=== PATIENT | male | born 1980 | race Caucasian/White ===

== ENCOUNTER 2017-11-04 20:49 | Emergency (ER) | payer BC ==
[2017-11-04 21:05] VITALS: BP 187/107
[2017-11-04] MEDS ORDERED: Ondansetron 4 MG/2 ML SDV IVPUSH ONE (21:32)
[2017-11-04] MEDS ORDERED: HYDROmorphone 1 MG/ML Syringe IVPUSH ONE (21:32)
--- NOTE | 2017-11-04 21:40 | EDM.PDOC ---
ED HPI GENERAL MEDICAL PROBLEM - General Chief Complaint: Genitourinary Problem Stated Complaint: BLEEDING Time Seen by Provider: 11/04/17 21:08 Source of Information: Reports: Patient History Limitations: Reports: No Limitations - History of Present Illness INITIAL COMMENTS - FREE TEXT/NARRATIVE: This is a 37-year-old male. He had a vasectomy yesterday by a local family physician. He took it easy yesterday after the procedure. Apparently today he went to a class and noted that his scrotum began to swell. He states he has not been doing anything too rambunctious and has not hit his testicle area though he did lift his kids up that weighed 25-30 pounds. Since the swelling started he has gotten markedly worse with marked swelling of the scrotum that's very tense and the purple discoloration is up into the pre-pubic area and also the perineal area as well as the scrotum and into the base of the shaft of the penis. He has been able to urinate despite the swelling. He denies any fever or chills he denies any other acute symptoms. Pelvic Pain Score (Numeric/FACES): 8 - Related Data Allergies Allergy/AdvReac Type Severity Reaction Status Date / Time No Known Allergies Allergy Verified 11/04/17 20:56 Home Meds: Home Meds Acetaminophen/Codeine [Tylenol with Codeine No.3 300MG/30MG] 1 tab PO ASDIRECTED 11/04/17 [History] Past Medical History - Past Health History Medical/Surgical History: Denies Medical/Surgical History Respiratory History: Reports: Sleep Apnea - Past Surgical History HEENT Surgical History: Reports: Other (See Below) GI Surgical History: Reports: Hernia Repair/Other Male Surgical History: Reports: Vasectomy Social & Family History - Tobacco Use Smoking Status *Q: Never Smoker - Caffeine Use Caffeine Use: Reports: Tea - Recreational Drug Use Recreational Drug Use: No ED ROS GENERAL - Review of Systems Review Of Systems: See Below Constitutional: Denies: Fever, Chills HEENT: Reports: No Symptoms Respiratory: Reports: No Symptoms Cardiovascular: Reports: No Symptoms Endocrine: Reports: No Symptoms GI/Abdominal: Reports: Other (As per history of present illness) : Reports: Other (As per history of present illness) Musculoskeletal: Reports: No Symptoms Skin: Reports: Other (As per history of present illness) Neurological: Reports: No Symptoms Psychiatric: Reports: No Symptoms ED EXAM, RENAL/ - Physical Exam Exam: See Below Exam Limited By: No Limitations General Appearance: Alert, WD/WN, Mild Distress Eye Exam: Bilateral Eye: Normal Inspection Ears: Normal External Exam Nose: Normal Inspection Throat/Mouth: Normal Inspection Head: Normocephalic Neck: Supple Respiratory/Chest: No Respiratory Distress Cardiovascular: Regular Rate, Rhythm GI/Abdominal: Other (He is noted to have probable discoloration of the skin in the prepuce ureteral area) (Male) Exam: Other (He has marked swelling and deep purple discoloration of his entire scrotum and at the base of the penis, the swelling is making the scrotum very tense and he also has deep purple discoloration in the perineal area as well) Back Exam: Full Range of Motion Extremities: Normal Inspection, Normal Range of Motion Neurological: Alert, Oriented Psychiatric: Normal Affect, Normal Mood Skin Exam: Warm, Dry Course - Vital Signs Last Recorded V/S: Last Vital Signs Temp 96.1 F 11/04/17 20:59 Pulse 92 11/04/17 20:59 Resp 18 11/04/17 20:59 BP 187/107 H 11/04/17 20:59 Pulse Ox 100 11/04/17 20:59 - Orders/Labs/Meds Orders: Active Orders 24 hr Category Date Time Status Scrotum and Contents [US] Stat Exams 11/04/17 21:33 Taken Labs: Laboratory Tests 11/04/17 11/04/17 Range/Units 21:48 21:48 WBC 13.95 H (4.23-9.07) K/mm3 RBC 5.12 (4.63-6.08) M/mm3 Hgb 14.4 (13.7-17.5) gm/L Hct 43.4 (40.1-51.0) % MCV 84.8 (79.0-92.2) fl MCH 28.1 (25.7-32.2) pg MCHC 33.2 (32.2-35.5) g/dl RDW Std Deviation 51.4 H (35.1-43.9) fL Plt Count 305 (163-337) K/mm3 MPV 9.3 L (9.4-12.3) fl Neut % (Auto) 79.7 H (34.0-67.9) % Lymph % (Auto) 12.8 L (21.8-53.1) % Grundy % (Auto) 6.5 (5.3-12.2) % Eos % (Auto) 0.4 L (0.8-7.0) Baso % (Auto) 0.4 (0.1-1.2) % Neut # (Auto) 11.14 H (1.78-5.38) K/mm3 Lymph # (Auto) 1.78 (1.32-3.57) K/mm3 Grundy # (Auto) 0.90 H (0.30-0.82) K/mm3 Eos # (Auto) 0.05 (0.04-0.54) K/mm3 Baso # (Auto) 0.05 (0.01-0.08) K/mm3 Sodium 139 (136-145) mEq/L Potassium 3.9 (3.5-5.1) mEq/L Chloride 101 (98-107) mEq/L Carbon Dioxide 27 (21-32) mEq/L Anion Gap 14.9 (5-15) BUN 9 (7-18) mg/dL Creatinine 1.2 (0.7-1.3) mg/dL Est Cr Clr Drug Dosing 92.51 mL/min Estimated GFR (MDRD) > 60 (>60) mL/min BUN/Creatinine Ratio 7.5 L (14-18) Glucose 108 H (74-106) mg/dL Calcium 9.0 (8.5-10.1) mg/dL Total Bilirubin 0.7 (0.2-1.0) mg/dL AST 47 H (15-37) U/L ALT 74 H (16-63) U/L Alkaline Phosphatase 36 L (46-116) U/L Total Protein 6.9 (6.4-8.2) g/dl Albumin 3.7 (3.4-5.0) g/dl Globulin 3.2 gm/dL Albumin/Globulin Ratio 1.2 (1-2) Meds: Medications Discontinued Medications Generic Name Dose Route Start Last Admin Trade Name Freq PRN Reason Stop Dose Admin Hydromorphone HCl 1 mg 11/04/17 21:32 11/04/17 21:49 Dilaudid IVPUSH 11/04/17 21:33 1 mg ONETIME ONE Administration Ondansetron HCl 4 mg 11/04/17 21:32 11/04/17 21:47 Zofran IVPUSH 11/04/17 21:33 4 mg ONETIME ONE Administration - Re-Assessments/Exams Free Text/Narrative Re-Assessment/Exam: 11/04/17 23:07 Patient was complaining of not being able to urinate well so we did a bladder scan suggested 690 mL in the bladder. We went ahead and did a straight catheter and got 920 mL from the bladder. 11/04/17 23:[address] Devine the urologist at [facility] and he indicates that he seldom open this up or drain at [place] gets infected. He suggested that since he is having urinary retention to go ahead and place a Thompson catheter and let him go home and be at bedrest and then the patient is to call the doctor on Tuesday to be rechecked. I indicated this to the patient and the family and they're good with this. Departure - Departure Time of Disposition: 23:25 Disposition: Home, Self-Care 01 Condition: Fair Clinical Impression: Hematoma of scrotum, Vasectomy status, Urinary retention - Discharge Information Instructions: Thompson Catheter Care, Adult Referrals: Matteo Hayes Jr, MD [Primary Care Provider] - Mario Devine MD [Ordering Only Provider] - Forms: ED Department Discharge Additional Instructions: Be at bed rest, only up to go to the bathroom, he may put a cool compress on the scrotum area but make sure you put a towel between the scrotum itself and the cool compress so you don't freeze the skin by accident, take the medication as needed for pain, call Dr. Mario Devine on Tuesday morning at [phone] for follow-up evaluation, if there is marked worsening of your symptoms return to the ER - My Orders Last 24 Hours: My Active Orders 11/04/17 21:33 Scrotum and Contents [US] Stat - Assessment/Plan Last 24 Hours: My Active Orders 11/04/17 21:33 Scrotum and Contents [US] Stat
[2017-11-04] MEDS ORDERED: HYDROmorphone 0.5 MG/0.5 ML Syringe IVPUSH ONE (23:29)
--- NOTE | 2017-11-05 16:00 | US ---
Testicular ultrasound: Multiple real-time images were obtained. Findings: Testicles have a homogeneous ultrasound appearance. Both arterial and venous blood flow are seen within the testicles. Large complicated structure is seen inferiorly within the scrotum measuring up to 13.5 cm which likely represents combination of soft tissue swelling and hematoma/hemorrhage. Impression: 1. Large complicated structure inferiorly within the scrotum measuring up to 13.5 cm which is felt to represent a combination of soft tissue swelling and hematoma/hemorrhage. 2. No intratesticular abnormality is seen. Diagnostic code #3 Agree with preliminary report issued by [facility] ([facility] preliminary report dictated on 11/05/17, 12:07 AM Central Time)
== END 2017-11-04 23:59 | disposition home or self-care (01) ==
LOC: JD.ED 20:49
DX: N99.840 Postprocedural hematoma of a genitourinary system organ or structure following a genitourinary system procedure (principal); R33.9 Retention of urine, unspecified; Z98.52 Vasectomy status
CPT/HCPCS: 36415; 51798; 76870; 80053; 85025; 93975; 96374; 96375; 96376; 99284; J1170; J2405; P9612

== ENCOUNTER 2017-11-06 06:21 | Emergency (ER) | payer BC ==
[2017-11-06 06:35] VITALS: BP 152/88
[2017-11-06] MEDS ORDERED: HYDROmorphone 1 MG/ML Syringe IM ONE (07:11)
--- NOTE | 2017-11-06 07:12 | EDM.PDOC ---
ED HPI GENERAL MEDICAL PROBLEM - General Chief Complaint: Genitourinary Problem Stated Complaint: CATH NOT DRAINING Time Seen by Provider: 11/06/17 06:36 Source of Information: Reports: Patient History Limitations: Reports: No Limitations - History of Present Illness INITIAL COMMENTS - FREE TEXT/NARRATIVE: Is a 37-year-old male. He was seen here late Tuesday night due to bleeding into the scrotum and his prepubertal area and perineum due to a vasecetectomy which he had on . He had urinary retention due to the swelling and had a Thompson catheter placed. He comes back this morning because he feels like the catheter isn't working though is not having pain in the abdomen doesn't feel like he is bloated just not having a lot of urine. We did a bladder scan and it was only 4-7 mL in his bladder and the catheter was draining urine during the bladder scan. He states that his scrotum is even larger than it was Tuesday night. He denies any fever or chills he denies any other acute symptoms. He spoke to see the urologist on Tuesday. I have suggested that since this is continuing to grow that he needs to go to [place] today to the [facility] and be evaluated to make certain that he'll need to open this and stop the bleeding. Perineal Area Pain Score (Numeric/FACES): 7 - Related Data Allergies Allergy/AdvReac Type Severity Reaction Status Date / Time No Known Allergies Allergy Verified 11/06/17 06:35 Home Meds: Home Meds Acetaminophen/Codeine [Tylenol with Codeine No.3 300MG/30MG] 1 tab PO ASDIRECTED 11/04/17 [History] Past Medical History - Past Health History Medical/Surgical History: Denies Medical/Surgical History Respiratory History: Reports: Sleep Apnea - Past Surgical History HEENT Surgical History: Reports: Other (See Below) GI Surgical History: Reports: Hernia Repair/Other Male Surgical History: Reports: Vasectomy Social & Family History - Tobacco Use Smoking Status *Q: Never Smoker - Caffeine Use Caffeine Use: Reports: None - Recreational Drug Use Recreational Drug Use: No ED ROS GENERAL - Review of Systems Review Of Systems: See Below Constitutional: Reports: No Symptoms HEENT: Reports: No Symptoms Respiratory: Reports: No Symptoms Cardiovascular: Reports: No Symptoms Endocrine: Reports: No Symptoms GI/Abdominal: Reports: Other (As per history of present illness) : Reports: Other (As per history of present illness) Musculoskeletal: Reports: No Symptoms Skin: Reports: No Symptoms Neurological: Reports: No Symptoms Psychiatric: Reports: No Symptoms Hematologic/Lymphatic: Reports: No Symptoms ED EXAM, RENAL/ - Physical Exam Exam: See Below Exam Limited By: No Limitations General Appearance: Alert, WD/WN, Mild Distress Eye Exam: Bilateral Eye: Normal Inspection Ears: Normal External Exam Nose: Normal Inspection Throat/Mouth: Normal Inspection Head: Normocephalic Neck: Supple Respiratory/Chest: No Respiratory Distress GI/Abdominal: Other (He has no specific abdominal tenderness on palpation the bladder is not distended or tender on palpation) (Male) Exam: Other (He continues to have a extremely large scrotum that is deep black purple in color along with prepubertal deep purple staining and the peritoneum deep purple staining, the penis now has been overshadowed almost by the swollen scrotum, the catheter is in place) Back Exam: Full Range of Motion Extremities: Normal Inspection, Normal Range of Motion Neurological: Alert, Oriented Psychiatric: Normal Affect, Normal Mood Skin Exam: Warm, Dry Course - Vital Signs Last Recorded V/S: Last Vital Signs Temp 97.9 F 11/06/17 06:30 Pulse 101 H 11/06/17 06:30 Resp 18 11/06/17 06:30 BP 152/88 H 11/06/17 06:30 Pulse Ox 97 11/06/17 06:30 Departure - Departure Time of Disposition: 07:14 Disposition: Home, Self-Care 01 Condition: Fair Clinical Impression: Evaluation of postoperative testicular pain within 30 days of vasectomy, Retention of urine, Hematoma of scrotum - Discharge Information Referrals: Matteo Hayes Jr, MD [Primary Care Provider] - Additional Instructions: Continue with catheter care, I would encourage you to go to [facility] to be evaluated there because the scrotum is continuing to enlarge due to the bleeding, return to this ER if needed
== END 2017-11-06 07:42 | disposition home or self-care (01) ==
LOC: JD.ED 06:21
DX: N99.840 Postprocedural hematoma of a genitourinary system organ or structure following a genitourinary system procedure (principal); R33.9 Retention of urine, unspecified
CPT/HCPCS: 96372; 99283; J1170; 99282

== ENCOUNTER 2017-11-07 19:34 | Emergency (ER) | payer BC ==
[2017-11-07 19:47] VITALS: BP 150/88
--- NOTE | 2017-11-07 21:22 | EDM.PDOC ---
ED HPI GENERAL MEDICAL PROBLEM - General Chief Complaint: Gastrointestinal Problem Stated Complaint: REVIST COSTIPATION Time Seen by Provider: 11/07/17 19:55 Source of Information: Reports: Patient History Limitations: Reports: No Limitations - History of Present Illness INITIAL COMMENTS - FREE TEXT/NARRATIVE: The patient presents with constipation. He had a vasectomy by Dr aHyes on . The next day he came to the ER because he had more swelling. I lopez cath was put in also because he had urinary retention. He was told to follow up on Tuesday. He came back on Tuesday with more edema and pain and he went to [facility] in [place] and they had to open up and drain out clots and blood. He has been doing good with that but no he has not had a bowel movement since the . He has tried a stool softener and enemas at home with no relief. He is worried with him pushing that he may tear open his sutures. Onset: Gradual Duration: Day(s): (5) Location: Reports: Abdomen Quality: Reports: Other (Cramping) Severity: Moderate Improves with: Reports: None Worsens with: Reports: None Associated Symptoms: Reports: Nausea/Vomiting. Denies: Chest Pain, Cough, Fever /Chills, Headaches, Shortness of Breath Rectal Pain Score (Numeric/FACES): 6 - Related Data Allergies Allergy/AdvReac Type Severity Reaction Status Date / Time No Known Allergies Allergy Verified 11/07/17 19:47 Home Meds: Home Meds Cephalexin 1 cap PO TID 11/07/17 [History] Hydrocodone/Acetaminophen [Hydrocodon-Acetaminophen 5-325] 1 tab PO Q6HR [History] Sennosides/Docusate Sodium [Senna-Docusate Sodium Tablet] 1 tab PO BID 11/07/17 [History] Past Medical History - Past Health History Medical/Surgical History: Denies Medical/Surgical History Respiratory History: Reports: Sleep Apnea - Past Surgical History GI Surgical History: Reports: Hernia Repair/Other Male Surgical History: Reports: Vasectomy Social & Family History - Family History Family Medical History: Noncontributory - Tobacco Use Smoking Status *Q: Never Smoker - Caffeine Use Caffeine Use: Reports: None - Recreational Drug Use Recreational Drug Use: No ED ROS GENERAL - Review of Systems Review Of Systems: See Below Constitutional: Reports: No Symptoms HEENT: Reports: No Symptoms Respiratory: Reports: No Symptoms Cardiovascular: Reports: No Symptoms Endocrine: Reports: No Symptoms GI/Abdominal: Reports: Abdominal Pain, Constipation, Nausea. Denies: Vomiting : Reports: No Symptoms Musculoskeletal: Reports: No Symptoms ED EXAM, GI/ABD - Physical Exam Exam: See Below Exam Limited By: No Limitations General Appearance: Alert, No Apparent Distress Ears: Normal External Exam Nose: Normal Inspection Head: Atraumatic, Normocephalic Neck: Normal Inspection Respiratory/Chest: No Respiratory Distress, Lungs Clear, Normal Breath Sounds Cardiovascular: Regular Rate, Rhythm, No Edema, No Murmur GI/Abdominal Exam: Soft, No Organomegaly, No Mass, Tender (Mild generalized) Course - Vital Signs Last Recorded V/S: Last Vital Signs Temp 97.5 F 11/07/17 19:42 Pulse 97 11/07/17 19:42 Resp 18 11/07/17 19:42 BP 150/88 H 11/07/17 19:42 Pulse Ox 96 11/07/17 19:42 - Orders/Labs/Meds Orders: Active Orders 24 hr Category Date Time Status Enema [RC] ASDIRECTED Care 11/07/17 20:05 Active Abdomen 1V Upright [CR] Stat Exams 11/07/17 20:04 Taken - Re-Assessments/Exams Free Text/Narrative Re-Assessment/Exam: 11/07/17 21:22 I ordered an x-ray that shows moderate amount of stool. I also ordered a soap suds enema. 11/07/17 22:12 He had little output. I will give him some mag citrate to take at home. Departure - Departure Time of Disposition: 22:15 Disposition: Home, Self-Care 01 Condition: Good Clinical Impression: Constipation Qualifiers: Constipation type: other constipation type Qualified Code(s): K59.09 - Other constipation - Discharge Information Referrals: PCP,None [Primary Care Provider] - Forms: ED Department Discharge Additional Instructions: Take 1/2 bottle of magnesium citrate when you get home. If you have no bowel movement in 2 to 3 hours take the other half bottle. You should have a bowel movement by morning. Drink a glass of water after the dose of magnesium citrate. Please return if you are worse. - My Orders Last 24 Hours: My Active Orders 11/07/17 20:04 Abdomen 1V Upright [CR] Stat 11/07/17 20:05 Enema [RC] ASDIRECTED - Assessment/Plan Last 24 Hours: My Active Orders 11/07/17 20:04 Abdomen 1V Upright [CR] Stat 11/07/17 20:05 Enema [RC] ASDIRECTED
[2017-11-07] MEDS ORDERED: Magnesium Citrate Solution 296 ML Bottle PO ONE (22:13)
--- NOTE | 2017-11-08 06:56 | CR ---
Abdomen: Upright view of the abdomen was obtained. Comparison: No prior abdominal imaging. Slight increased stool within the colon is seen. Bowel gas pattern is otherwise unremarkable. Small calcifications are seen within the pelvis likely representing phleboliths. No soft tissue abnormality is seen. Bony structures are unremarkable. No free air is seen. Impression: 1. Slight increased stool within the colon. Diagnostic code #2
== END 2017-11-07 22:22 | disposition home or self-care (01) ==
LOC: JD.ED 19:34
DX: K59.09 Other constipation (principal); Z79.899 Other long term (current) drug therapy
CPT/HCPCS: 74018; 99284; A9270; 99282

== ENCOUNTER 2019-01-22 17:06 | Emergency (ER) | payer BC ==
--- NOTE | 2019-01-22 18:50 | EDM.PDOC ---
ED HPI GENERAL MEDICAL PROBLEM - General Chief Complaint: Cardiovascular Problem Stated Complaint: [facility] Time Seen by Provider: 01/22/19 17:52 Source of Information: Reports: Patient History Limitations: Reports: No Limitations - History of Present Illness INITIAL COMMENTS - FREE TEXT/NARRATIVE: Patient is a 38-year-old male who presents ED complaining of elevated blood pressure. He carries a history of hypertension and has been monitoring. He has been on no treatment for this condition. Today unfortunately he crossed the centerline and was pulled over by law enforcement with concerns he was intoxicated. Patient underwent complete field sobriety test and passed. They also thought patient may be a diabetic and summoned EMS to evaluate the patient. Patient is not a diabetic. EMS found the patient to have elevated blood pressure and per law enforcement's request he should be transported to the emergency room for further evaluation. They would not allow him to drive his own vehicle home. Patient was not able to provide a ride to come pick him up and have somebody drive his pickup home. Patient states he was quite irritated about this episode. He states his blood pressure has never been this high but relates it to all distress brought on by this experience. 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 Patient denies any headaches, dizziness , visual changes, chest pain, shortness of breath, abdominal pain, nausea vomiting, and/or any additional complaints. Patient does not smoke nor missed any recent alcohol use. He does use energy drinks and T on a occasional basis. He admits to having whitecoat syndrome. EMS notes patient's blood pressure with initial examination was 214/18. Patient was administered metoprolol 5 mg IVP. Upon admission to the ED blood pressure 139/85. - Related Data Allergies Allergy/AdvReac Type Severity Reaction Status Date / Time No Known Allergies Allergy Verified 01/22/19 17:14 Home Meds: Home Meds Lisinopril 20 mg PO DAILY #60 tablet 01/22/19 [Rx] Past Medical History - Past Health History Medical/Surgical History: Denies Medical/Surgical History Respiratory History: Reports: Sleep Apnea - Past Surgical History HEENT Surgical History: Reports: Other (See Below) GI Surgical History: Reports: Hernia Repair/Other Male Surgical History: Reports: Vasectomy Social & Family History - Family History Family Medical History: Noncontributory - Tobacco Use Smoking Status *Q: Never Smoker - Caffeine Use Caffeine Use: Reports: Energy Drinks, Tea - Recreational Drug Use Recreational Drug Use: No ED ROS GENERAL - Review of Systems Review Of Systems: ROS reveals no pertinent complaints other than HPI. ED EXAM, GENERAL - Physical Exam Exam: See Below Exam Limited By: No Limitations General Appearance: Alert, WD/WN, No Apparent Distress Ears: Hearing Grossly Normal Throat/Mouth: Normal Inspection, Normal Voice, No Airway Compromise Head: Atraumatic, Normocephalic Neck: Normal Inspection, Supple Respiratory/Chest: No Respiratory Distress, Lungs Clear, Normal Breath Sounds, No Accessory Muscle Use Cardiovascular: Normal Peripheral Pulses, Regular Rate, Rhythm, No Murmur Peripheral Pulses: 2+: Radial (R) Back Exam: Paraspinal Tenderness Neurological: Alert, Oriented, CN II-XII Intact, Normal Cognition, No Motor/ Sensory Deficits Psychiatric: Normal Affect, Normal Mood Skin Exam: Warm, Dry, Intact, Normal Color Course - Vital Signs Last Recorded V/S: Last Vital Signs Temp 99.1 F 01/22/19 17:10 Pulse 74 01/22/19 17:10 Resp 18 01/22/19 17:10 BP 137/82 01/22/19 19:11 Pulse Ox 95 01/22/19 17:10 - Orders/Labs/Meds Meds: Medications Discontinued Medications Generic Name Dose Route Start Last Admin Trade Name Imelda PRN Reason Stop Dose Admin Lisinopril 10 mg 01/22/19 18:54 01/22/19 19:11 Prinivil PO 01/22/19 18:55 Not Given ONETIME ONE - Re-Assessments/Exams Free Text/Narrative Re-Assessment/Exam: Patient has no chest pain, shortness of breath, palpitations, abd pain, or any additional complaints with arrival to the ED. Patient admits to being very anxious and agitated during the field sobriety test. He has a history of hypertension in the past. States his blood pressures have been trending high for quite some time. There is a family history of hypertension. There is no history of coronary disease. He does not want any testing done at this time including: EKG or lab work. He recently had lab work completed here. I discussed with him starting lisinopril 20 mg every day. Cr 1.2. He agreed with starting. He will followup with PCP in the next 3 to 5 days for reevaluation. Return precautions discussed with patient. Patient will most likely require a second antihypertensive medications such as HCTZ or Norvasc. Departure - Departure Time of Disposition: 18:50 Disposition: Home, Self-Care 01 Condition: Good Clinical Impression: Hypertension Qualifiers: Hypertension type: unspecified Qualified Code(s): I10 - Essential (primary) hypertension Prescriptions: Lisinopril 20 mg PO DAILY #60 tablet Instructions: DASH Eating Plan, Managing Your Hypertension Referrals: PCP,None [Primary Care Provider] - Forms: ED Department Discharge Additional Instructions: As discussed your blood pressure was elevated with admission to the ED. Start taking lisinopril 20 mg every day. Check your blood pressure daily same arm along allowing yourself 5-10 minutes to relax prior to doing so. Do not cross your legs. Do not take your blood pressure with being anxious, in pain, after working out, or after drinking excessive amounts of caffeine. Follow dash diet. Please see your PCP in 3-5 days for reevaluation. Please bring those blood pressure log with you to the next appointment so they can see the trends. Bring your BP machine as well. Please return back to the ED if you develop any new or worsening symptoms.
[2019-01-22] MEDS ORDERED: Lisinopril 10 MG Tab PO ONE (18:54)
[2019-01-22 19:12] VITALS: BP 137/82
== END 2019-01-22 18:50 | disposition home or self-care (01) ==
LOC: JD.ED 17:06
DX: I10 Essential (primary) hypertension (principal); Z79.899 Other long term (current) drug therapy
CPT/HCPCS: 99283

== ENCOUNTER 2020-10-02 18:14 | Emergency (ER) | payer BC ==
[2020-10-02 18:26] VITALS: BP 178/97; PULSE 82
[2020-10-02] MEDS ORDERED: Ketorolac 0.5% Ophth Soln 5 ML Bottle EYERT ONE (18:56)
[2020-10-02] MEDS ORDERED: Ciprofloxacin 0.3% Ophth Soln 5 ML Bottle EYERT ONE (19:05)
--- NOTE | 2020-10-02 19:09 | EDM.PDOC ---
ED HPI GENERAL MEDICAL PROBLEM - General Chief Complaint: Eye Problems Stated Complaint: FB IN RIGHT EYE Time Seen by Provider: 10/02/20 18:45 Source of Information: Reports: Patient History Limitations: Reports: No Limitations - History of Present Illness INITIAL COMMENTS - FREE TEXT/NARRATIVE: 40-year-old male presents to the ED with foreign body sensation in his right eye. He was cutting a piece of metal hinge off of a door with a saws all and felt a foreign body of metal enter his right eye. Here he irrigated it on scene and also at home and was identify a foreign body within his eye. He feels irritation up underneath his right eyelid. No change in visual acuity. Patient does not wear eyeglasses or contact lenses. Injury occurred within the last hour and a half before coming to the ED. And went away completely with topical proparacaine eyedrops. Onset: Today, Sudden Onset Date: 10/02/20 Onset Time: 17:00 Duration: Hour(s):, Getting Worse Location: Reports: Face Quality: Reports: Ache, Other (Warm body sensation right eye) Severity: Moderate Improves with: Reports: None Worsens with: Reports: None Context: Reports: Trauma. Denies: Activity, Exercise, Lifting, Sick Contact Associated Symptoms: Denies: Confusion, Chest Pain, Cough, cough w sputum, Diaphoresis, Fever/Chills, Headaches, Loss of Appetite, Malaise, Nausea/Vomiting, Rash, Seizure, Shortness of Breath Treatments SIGHT MOUNTER: Reports: Other (see below) (#1.) Right Eye Pain Score (Numeric/FACES): 8 - Related Data Allergies Allergy/AdvReac Type Severity Reaction Status Date / Time No Known Allergies Allergy Verified 10/02/20 18:26 Home Meds: Home Meds Lisinopril 20 mg PO DAILY #60 tablet 01/22/19 [Rx] Past Medical History - Past Health History Medical/Surgical History: Denies Medical/Surgical History Respiratory History: Reports: Sleep Apnea - Past Surgical History HEENT Surgical History: Reports: Other (See Below) Other HEENT Surgeries/Procedures: Rhinoplasty GI Surgical History: Reports: Hernia Repair/Other Male Surgical History: Reports: Vasectomy Social & Family History - Family History Family Medical History: No Pertinent Family History - Tobacco Use Tobacco Use Status *Q: Never Tobacco User - Caffeine Use Caffeine Use: Reports: Energy Drinks, Tea - Recreational Drug Use Recreational Drug Use: No - Living Situation & Occupation Living situation: Reports: Occupation: Employed ED ROS GENERAL - Review of Systems Review Of Systems: See Below Constitutional: Reports: No Symptoms HEENT: Reports: Other (And body sensation right eye). Denies: Glasses Respiratory: Reports: No Symptoms Cardiovascular: Reports: Blood Pressure Problem Endocrine: Reports: No Symptoms GI/Abdominal: Reports: No Symptoms : Reports: No Symptoms Musculoskeletal: Reports: No Symptoms Skin: Reports: No Symptoms Neurological: Reports: No Symptoms Psychiatric: Reports: No Symptoms Hematologic/Lymphatic: Reports: No Symptoms Immunologic: Reports: No Symptoms ED EXAM GENERAL W FULL EYE - Physical Exam Exam: See Below Exam Limited By: No Limitations General Appearance: Alert, WD/WN, No Apparent Distress, Other (Temperature is 37.1. Heart rate 82 in sinus respiratory to 16 with O2 sats of 96% room air BP is 178/97.) Eye Exam: Right Eye: Corneal Abrasion (From the 12 o'clock position on the cornea on slit lamp exam), Foreign Body (Identified with slit-lamp at the 12 o'clock position removed with a moistened Q-tip), Bilateral Eye: PERRL Visual Acuity (R) 20/: 20 Visual Acuity (L) 20/: 20 With Correction: No Eyelids: Right: Normal Appearance, Lid Everted for Exam (No foreign body identified.) Conjunctiva & Sclera: Bilateral: Normal Appearance Cornea Exam: Right: Foreign Body (Dental five with a slit lamp at 12 o'clock position 2 mm from the limbus. After removal with a Q-tip there is a very superficial corneal abrasion.) Extraocular Movements: Bilateral: Intact Pupillary Size: Bilateral: 6 mm Pupillary Reaction: Bilateral: Brisk Anterior Chamber: Bilateral: Normal Appearance Course - Vital Signs Last Recorded V/S: Last Vital Signs Temp 37.1 C 10/02/20 18:24 Pulse 82 10/02/20 18:24 Resp 16 10/02/20 18:24 BP 178/97 H 10/02/20 18:24 Pulse Ox 96 10/02/20 18:24 - Orders/Labs/Meds Meds: Medications Discontinued Medications Generic Name Dose Route Start Last Admin Trade Name Freq PRN Reason Stop Dose Admin Ciprofloxacin 2.5 ml 10/02/20 19:05 10/02/20 19:14 Ciloxan 0.3% Ophth Soln EYERT 10/02/20 19:06 2.5 ml ONETIME ONE Administration Ketorolac Tromethamine 3 ml 10/02/20 18:56 10/02/20 19:13 Acular 0.5% Ophth Soln EYERT 10/02/20 18:57 3 ml ONETIME ONE Administration - Radiology Interpretation Free Text/Narrative:: 40-year-old male presents to the ED with foreign body sensation right eye. He was cutting a piece of metal a a hinge from a door with a saws all when he felt foreign body entering his right eye. Since then his fillet floating up underneath his right eyelid. Pain went away completely with topical proparacaine eyedrops. Eversion of the right upper eyelid did not reveal any foreign bodies and the eyelid was swept with moistened Q-tip. Slit-lamp examination revealed a metallic foreign body at the 12 o'clock position 2 mm from the limbus. This was removed with the aid of a Q-tip. Repeat examination with slit lamp revealed a very superficial corneal abrasion in this area. Discharged home on ketorolac eyedrops 2 drops to the right eye every 6 hours as needed up to three times and Cipro ophthalmic drops 2 drops every 8 hours for 2 days to prevent any secondary infection. Follow-up if any other problems occur. Departure - Departure Time of Disposition: 19:22 Disposition: Home, Self-Care 01 Condition: Fair Clinical Impression: Foreign body of right eye Qualifiers: Encounter type: initial encounter Qualified Code(s): T15.91XA - Foreign body on external eye, part unspecified, right eye, initial encounter - Discharge Information *PRESCRIPTION DRUG MONITORING PROGRAM REVIEWED*: Not Applicable *COPY OF PRESCRIPTION DRUG MONITORING REPORT IN PATIENT RAMSES: Not Applicable Instructions: Eye Foreign Body, [id number] Referrals: Mateto Hayes Jr, MD [Primary Care Provider] - Forms: ED Department Discharge Additional Instructions: Evaluation in the emergency room today in regards to foreign body sensation right eye that you appreciated after cutting a piece of metal with saws all at work. Examination with slit lamp revealed a piece of metal at the 12 o'clock position of the cornea with a mild superficial scratch in this area. The foreign body was removed with a moistened Q-tip. No foreign bodies were identified up underneath the eyelid. Suggest treatment to be ketorolac eyedrops 2 drops to the right eye every 6 hours as needed for relief of eye pain. The corneal abrasion will for the most part be healed by noon tomorrow. Also use antibiotic eyedrops Cipro 2 drops to the right eye every 8 hours for 2 days to prevent secondary infection. Right eye should be completely back to normal within 24 hours. Sepsis Event Note (ED) - Evaluation Sepsis Screening Result: No Definite Risk - Focused Exam Vital Signs: Vital Signs Temp Pulse Resp BP Pulse Ox 10/02/20 18:24 37.1 C 82 16 178/97 H 96
== END 2020-10-02 19:15 | disposition home or self-care (01) ==
LOC: JD.ED 18:14
DX: T15.01XA Foreign body in cornea, right eye, initial encounter (principal); Z79.899 Other long term (current) drug therapy
CPT/HCPCS: 65222; 99283; 99283-25; A9270-GY

== ENCOUNTER 2021-06-20 13:31 | Emergency (ER) | payer BC ==
[2021-06-20] MEDS ORDERED: Lidocaine 1% with EPINEPHrine 1:100,000 20 ML MDV INJECT ONE (15:04)
--- NOTE | 2021-06-20 15:05 | EDM.PDOC ---
ED HPI GENERAL MEDICAL PROBLEM - General Chief Complaint: Laceration Stated Complaint: CHIN LAC Time Seen by Provider: 06/20/21 14:55 Source of Information: Reports: Patient History Limitations: Reports: No Limitations - History of Present Illness INITIAL COMMENTS - FREE TEXT/NARRATIVE: 41-year-old male presents to the ED after horse accident. He was riding along the [place] and horse started to sink and slipped in mud. This in turn caused the patient to be thrown from the horse and he believes he was kicked in the chin or struck the saddle horn with his chin on his way to the ground. He identifies a fractured left upper canine tooth with dentin exposure i.e. Campos type III. Laceration to the undersurface of his chin. No loss of consciousness occurred. Feels malocclusion like his teeth do not match up. Pain in both temporomandibular joints. Mild tenderness in his neck but normal range of motion. Pain in his left upper biceps muscle distribution. No other injuries he was able to walk on his own volition once he could get up out of the mud. Tetanus toxoid was updated about a year ago. Onset: Today, Sudden Onset Date: 06/20/21 Onset Time: 13:15 Duration: Minutes:, Constant Location: Reports: Face (Laceration undersurface of chin), Other (Blunt trauma mandible) Quality: Reports: Ache (Triggering both temporomandibular joints with sensation of malocclusion.) Severity: Moderate Improves with: Reports: Rest (Better if he keeps his mouth closed.) Worsens with: Reports: Other (Talking.) Context: Reports: Trauma (The horse he was riding sunk in mud and started to slip and slide and he was thrown from the horse. He is unsure if his chin hit the saddle horn or he was kicked by the horse in the chin suffering mandibular injury laceration undersurface of chin and fractured tooth.). Denies: Activity, Exercise, Lifting, Sick Contact Associated Symptoms: Reports: Other (Pain and swelling of biceps muscle left arm). Denies: Confusion, Chest Pain, Cough, cough w sputum, Diaphoresis, Fever/Chills, Headaches, Loss of Appetite, Malaise, Nausea/Vomiting, Shortness of Breath, Syncope Treatments TRAFFIC REPORTER: Reports: Other (see below) (None.) Bilateral Jaw Pain Score (Numeric/FACES): 7 Left Upper Arm Pain Score (Numeric/FACES): 6 - Related Data Allergies Allergy/AdvReac Type Severity Reaction Status Date / Time No Known Allergies Allergy Verified 10/02/20 18:26 Home Meds: Home Meds Lisinopril 20 mg PO DAILY #60 tablet 01/22/19 [Rx] oxyCODONE HCl/Acetaminophen [Percocet 5-325 mg Tablet] 1 - 2 each PO Q4H PRN #14 tablet 06/20/21 [Rx] Past Medical History - Past Health History Medical/Surgical History: Denies Medical/Surgical History Cardiovascular History: Reports: Hypertension Respiratory History: Reports: Sleep Apnea - Past Surgical History HEENT Surgical History: Reports: Other (See Below) Other HEENT Surgeries/Procedures: Rhinoplasty GI Surgical History: Reports: Hernia Repair/Other Male Surgical History: Reports: Vasectomy Social & Family History - Family History Family Medical History: No Pertinent Family History - Caffeine Use Caffeine Use: Reports: Energy Drinks, Tea - Living Situation & Occupation Living situation: Reports: Occupation: Employed ED ROS GENERAL - Review of Systems Review Of Systems: See Below Constitutional: Denies: Fever, Chills, Malaise, Weakness, Fatigue, Decreased Appetite, Weight Loss HEENT: Denies: Glasses Respiratory: Reports: Other (Of apnea syndrome) Cardiovascular: Reports: Blood Pressure Problem Endocrine: Reports: No Symptoms GI/Abdominal: Reports: No Symptoms : Reports: No Symptoms Musculoskeletal: Reports: Back Pain (Occasional problems with low back pain) Skin: Reports: No Symptoms Neurological: Reports: No Symptoms Psychiatric: Reports: No Symptoms Hematologic/Lymphatic: Reports: No Symptoms Immunologic: Reports: No Symptoms ED EXAM, SKIN/RASH Exam: See Below Exam Limited By: No Limitations General Appearance: Alert, WD/WN, No Apparent Distress, Other (4 to 4.5 cm jagged laceration undersurface of chin temperature is 37.3 degrees. Heart rate 74 and sinus respiratory 20 with O2 sats of 99% room air BP initially elevated at 205/127.) Eye Exam: Bilateral Eye: Normal Inspection, PERRL Ears: Normal TMs, Other (Both ears are full of blood.) Throat/Mouth: Normal Inspection, Normal Lips, Normal Oropharynx, Other (4.5 cm laceration undersurface of the chin heavily contaminated with mind and debris. Pain on palpation of both temporomandibular joints equally.). No: Normal Teeth (Has a fracture with exposed dentin left upper second bicuspid tooth) Head: Atraumatic, Normocephalic, Other (Swelling with 4 to 4.5 cm laceration undersurface of chin. Associated trismus with ability to only open to 2 cm in the midline. No injury to the tongue identified oropharynx is otherwise clear) Neck: Normal Inspection, Supple, Non-Tender, Full Range of Motion, Other. No: Lymphadenopathy (L), Lymphadenopathy (R) Respiratory/Chest: No Respiratory Distress (States his neck is mildly tender but has full unopposed range of motion), Lungs Clear, Normal Breath Sounds, No Accessory Muscle Use, Other Cardiovascular: Normal Peripheral Pulses, Regular Rate, Rhythm, No Edema, No Gallop, No Murmur (No pain on firm compression of his ribs and sternum), No Rub Peripheral Pulses: 3+: Carotid (L), Carotid (R), Posterior Tibial (L), Posterior Tibial (R), Dorsalis Pedis (L), Dorsalis Pedis (R) GI/Abdominal: Normal Bowel Sounds, Soft, Non-Tender, No Organomegaly, No Distention, No Abnormal Bruit Back Exam: Normal Inspection, Full Range of Motion. No: CVA Tenderness (L), CVA Tenderness (R) Extremities: Normal Inspection, Normal Range of Motion, No Pedal Edema, Other (She has a hematoma medial aspect of his left biceps muscle distribution with pain with flexing the biceps muscle full range of motion of his shoulder clavicle and acromioclavicular joints. No injuries to his lower extremities or pelvis) Neurological: Alert ( noted), Oriented, CN II-XII Intact, Normal Cognition Psychiatric: Normal Affect, Normal Mood Skin: Warm, Dry, Normal Color, No Rash, Wound/Incision (Surface of chin 4 to 4.5 cm in length) ED SKIN PROCEDURES - Laceration/Wound Repair Middle Face Appearance: Subcutaneous, Moderately Contaminated Distal NVT: Neuro & Vascular Intact Anesthetic Type: Local Local Anesthesia - Lidocaine (Xylocaine): 1% Plain Local Anesthetic Volume: 5cc Skin Prep: Saline Exploration/Debridement/Repair: Wound Explored, Minimal Debridement, Foreign Material Removed Closed with: Sutures Lac/Wound length In cm: 4.5 Suture Size: 4-0 # of Sutures: 12 Suture Type: Nylon, Interrupted, Simple Course - Vital Signs Last Recorded V/S: Last Vital Signs Temp 37.2 C 06/20/21 17:30 Pulse 75 06/20/21 17:30 Resp 20 06/20/21 17:30 BP 160/75 H 06/20/21 17:30 Pulse Ox 99 06/20/21 17:30 - Orders/Labs/Meds Orders: Active Orders 24 hr Category Date Time Status Maxillofacial w/o CM [Max Facial Sinus wo Cont] [CT] Exams 06/20/21 15:04 Taken Stat Meds: Medications Discontinued Medications Generic Name Dose Route Start Last Admin Trade Name Freq PRN Reason Stop Dose Admin Ibuprofen 600 mg 06/20/21 16:46 06/20/21 16:53 Ibuprofen 600 Mg Tab PO 06/20/21 16:47 600 mg ONETIME ONE Administration Lidocaine/Epinephrine 20 ml 06/20/21 15:04 06/20/21 15:40 Lidocaine 1% With Epinephrine 1:100,000 20 Ml Mdv INJECT 06/20/21 15:05 Not Given ONETIME ONE Lidocaine/Epinephrine 20 ml 06/20/21 15:09 06/20/21 15:39 Lidocaine 1% With Epinephrine 1:100,000 10 Ml Mdv INJECT 06/20/21 15:10 20 ml ONETIME ONE Administration Oxycodone/Acetaminophen 1 tab 06/20/21 16:46 06/20/21 16:52 Acetaminophen/Oxycodone 325-5 Mg Tab PO 06/20/21 16:47 1 tab ONETIME ONE Administration - Radiology Interpretation Free Text/Narrative:: 41-year-old male presents to the ED after horse accident. States the horse stepped in mud along a [place] or [place] and started to sink. 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 He struck his chin either on the saddle horn or was kicked in the chin by the horse. He has pain in both temporomandibular joints and trismus. Associated fracture left upper canine tooth with dentin exposed. Has a 4 to 4.5 cm jagged laceration undersurface of his chin. Contusion to the left upper arm in the biceps muscle distribution medially without evidence of bony fractures. Lower extremities and back appear to be uninjured. Plan patient will have maxillofacial CT performed. Laceration will have to be cleansed and then sutured under local anesthetic. His tetanus toxoid is up-to-date. - Re-Assessments/Exams Free Text/Narrative Re-Assessment/Exam: 06/20/21 16:[address] exam has been completed. No fractures are identified within the mandible or facial bones. Laceration undersurface of the chin will be sutured at this time. 06/20/21 17:[address] of CT maxillofacial bones reveals orbits are hayden l with globes unremarkable. Discogenic degenerative changes appreciate the C5- C6 level including intervertebral osteophytes. Paranasal sinuses are normal with no air-fluid levels. Auditory system retained secretions in both external auditory canals due to mild. Soft tissues are unremarkable nasal cavity yuliya bullosa on the right. No fractures identified within the mandible. Laceration repaired undersurface of chin 4.5 cm in length sutured x12 with 4-0 Ethilon. He will cleanse the wound daily with soap and water. Showering is okay. Then apply topical antibiotic such as bacitracin or Polysporin once daily and cover to keep clean. Sutures will be removed in 8 days time Departure - Departure Time of Disposition: 17:11 Disposition: Home, Self-Care 01 Condition: Fair Clinical Impression: Contusion of mandibular joint area Qualifiers: Encounter type: initial encounter Qualified Code(s): S00.83XA - Contusion of other part of head, initial encounter Laceration of skin of chin Qualifiers: Encounter type: initial encounter Qualified Code(s): S01.81XA - Laceration without foreign body of other part of head, initial encounter - Discharge Information *PRESCRIPTION DRUG MONITORING PROGRAM REVIEWED*: Not Applicable *COPY OF PRESCRIPTION DRUG MONITORING REPORT IN PATIENT RAMSES: Not Applicable Prescriptions: oxyCODONE HCl/Acetaminophen [Percocet 5-325 mg Tablet] 1 - 2 each PO Q4H PRN #14 tablet PRN Reason: pain relief. Instructions: Laceration Care, Adult, Laceration Care, Adult, [id number] Referrals: PCP,None [Primary Care Provider] - Forms: ED Department Discharge Additional Instructions: Evaluation in the emergency room today in regards to injuries sustained in a horse accident. Unclear what struck you in the chin but it is suspected been the horses hoof. CT scan of the maxillofacial bones reveals no fracture within the mandible or jaw or within the alveolar tissue surrounding fractured tooth. You have suffered a 4.5 cm laceration to the undersurface of your chin which was heavily contaminated with blood and debris and which was removed under local anesthetic. Wound was sutured under local anesthetic x12 sutures. Treatment at home is to clean the wounds daily with soap and water. Showering is okay. Wound should not be soaked underwater until sutures are removed. Apply topical antibiotic such as bacitracin or Polysporin to the wound at least once daily and cover to keep clean. Sutures can be removed by your primary care physician in 8 days time. Of note fracture of the left upper second bicuspid tooth appreciated with exposure of the dentin which will require dental care. Expect increase stiffness and soreness in your neck and facial muscles over the next 24 to 48 hours. May use Motrin 600 mg every 6 hours to relieve pain and inflammation. May use Percocet tab 5/325 mg strength 1 or 2 every 4-6 hours necessary for pain relief if Motrin is not working alone. Of note Percocet tablets should be taken with something in your stomach and you should not be operating machinery or driving a motor vehicle if you take them. Return to medical care sooner if you see any signs of infection developing such as redness, swelling or obvious pus. Sepsis Event Note (ED) - Focused Exam Vital Signs: Vital Signs Temp Pulse Resp BP BP Pulse Ox 06/20/21 17:30 37.2 C 75 20 160/75 H 99 06/20/21 14:57 37.3 C 74 20 205/127 H 99 - My Orders Last 24 Hours: My Active Orders 06/20/21 15:04 Maxillofacial w/o CM [Max Facial Sinus wo Cont] [CT] Stat - Assessment/Plan Last 24 Hours: My Active Orders 06/20/21 15:04 Maxillofacial w/o CM [Max Facial Sinus wo Cont] [CT] Stat
[2021-06-20] MEDS ORDERED: Lidocaine 1% with EPINEPHrine 1:100,000 10 ML MDV INJECT ONE (15:09)
[2021-06-20] MEDS ORDERED: Ibuprofen 600 MG Tab PO ONE (16:46)
[2021-06-20] MEDS ORDERED: Acetaminophen/oxyCODONE 325-5 MG Tab PO ONE (16:46)
[2021-06-20 18:02] VITALS: BP 160/75; PULSE 75
--- NOTE | 2021-06-21 06:51 | CT ---
CT facial bones Technique: Multiple axial sections were obtained through the facial bones. Reconstructed coronal and sagittal images were obtained. Comparison: No prior facial study is available. Findings: Paranasal sinuses show nothing acute. 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 Right and left globes are symmetric. No retrobulbar abnormality is seen. Visualized mastoid sinuses are clear. Minimal cerumen is noted within the external auditory canals. Disc space narrowing and anterior osteophytes are seen at C5-6. No acute fracture is appreciated. Impression: 1. Incidental findings as noted above. 2. Nothing acute is appreciated on CT study of the facial bones. Diagnostic code #2 I agree with preliminary report from [facility], finalized on 06/20/21, 5:43 PM CDT, code 1
== END 2021-06-20 17:33 | disposition home or self-care (01) ==
LOC: JD.ED 13:31
DX: S01.81XA Laceration without foreign body of other part of head, initial encounter (principal); I10 Essential (primary) hypertension; Z79.899 Other long term (current) drug therapy; V80.010A Animal-rider injured by fall from or being thrown from horse in noncollision accident, initial encounter; Y93.52 Activity, horseback riding
CPT/HCPCS: 12013; 70486; 99283; A9270; 99284